=== PATIENT | female | born 1990 | race Two or more races ===

== ENCOUNTER 2019-07-09 12:07 | Emergency (ER) | payer OTHER ==
--- NOTE | 2019-07-09 13:29 | ER Document Report ---
ED Medical Screen (RME) - General Chief Complaint: Abdominal Pain Stated Complaint: ABDOMINAL PAIN/CRAMPING, CHILLS Notes: Patient is a 29-year-old female with no significant past medical history presents to the emergency department the chief complaint of abdominal pain that began yesterday. She states is primarily in the right upper quadrant and epigastric regions. She states is associated with some diarrhea but no vomiting. Denies any known fevers. Took some Tylenol at home without any significant improvement. States she was concerned when she woke up this morning and was still having some discomfort so she decided to come for evaluation. I have treated and performed a rapid initial assessment of this patient. A comprehensive ED assessment and evaluation of the patient, analysis of test results and completion of medical decision making process will be conducted by additional ED providers. PHYSICAL EXAMINATION: GENERAL: Well-appearing, well-nourished and in no acute distress. A&Ox4. Answers questions appropriately. Abdomen: Normal active bowel sounds in all quadrants. Tenderness palpation all 4 quadrants.
[2019-07-09 14:29] LABS: ABSOLUTE EOSINOPHILS # (AUTO) 0.3 10^3/uL (0.0-0.6); ABSOLUTE LYMPHOCYTES (AUTO) 2.1 10^3/uL (0.5-4.7); ABSOLUTE MONOCYTES (AUTO) 0.4 10^3/uL (0.1-1.4); ABSOLUTE NEUT (AUTO) 3.6 10^3/uL (1.7-8.2); BASOPHILS % (AUTO) 0.7 % (0-2); EOSINOPHILS % (AUTO) 4.8 % (0-6); HEMATOCRIT 39.9 % (36.0-47.0); HEMOGLOBIN 14.4 g/dL (12.0-15.5); LYMPHOCYTES % (AUTO) 32.4 % (13-45); MEAN CORPUSCULAR HEMOGLOBIN 33.1 pg (27.0-33.4); MEAN CORPUSCULAR VOLUME 92 fl (80-97); MONOCYTES % (AUTO) 6.7 % (3-13); PLATELET COUNT 321 10^3/uL (150-450); RED BLOOD COUNT 4.33 10^6/uL (3.72-5.28); RED CELL DISTRIBUTION WIDTH 13.1 % (11.5-14.0); SEGMENTED NEUTROPHILS % (AUTO) 55.4 % (42-78); TOTAL CELLS COUNTED % (AUTO) 100 %; WHITE BLOOD COUNT 6.6 10^3/uL (4.0-10.5)
[2019-07-09 14:46] LABS: AMORPHOUS SEDIMENT,URINE 1+ /HPF; APPEARANCE,URINE CLOUDY; BILIRUBIN,URINE NEGATIVE (NEGATIVE); COLOR,URINE YELLOW; GLUCOSE, URINE NEGATIVE (NEGATIVE); KETONES,URINE NEGATIVE (NEGATIVE); PROTEIN,URINE NEGATIVE (NEGATIVE); URINE SPECIFIC GRAVITY 1.018; UROBILINOGEN,URINE NEGATIVE mg/dL (<2.0)
[2019-07-09 14:48] LABS: ALKALINE PHOSPHATASE 76 U/L (38-126); ANION GAP 10 (5-19); ASPARTATE AMINO TRANSFERASE 25 U/L (14-36); BILIRUBIN,DIRECT 0.1 mg/dL (0.0-0.4); BILIRUBIN,TOTAL 0.5 mg/dL (0.2-1.3); BLOOD UREA NITROGEN 13 mg/dL (7-20); C-REACTIVE PROTEIN 5.5 mg/L (<10.0); CALCIUM 9.9 mg/dL (8.4-10.2); CARBON DIOXIDE 27 mmol/L (22-30); CHLORIDE 102 mmol/L (98-107); GLUCOSE 93 mg/dL (75-110); POTASSIUM 4.5 mmol/L (3.6-5.0); TOTAL PROTEIN 8.5 g/dL (6.3-8.2)
--- NOTE | 2019-07-09 14:55 | ER Document Report ---
ED GI/ - General Chief Complaint: Abdominal Pain Stated Complaint: ABDOMINAL PAIN/CRAMPING, CHILLS Time Seen by Provider: 07/09/19 14:10 Notes: HPI: 29-year-old female presents today with what she states is the onset around 4 days ago of some right upper quadrant intermittent abdominal "cramping". Not related to food. Some radiation to the midepigastrium. She has had no vomiting but has had multiple bouts of nonbloody diarrhea. No recent antibiotics trips or travel. No runny nose, congestion, cough, chest pain, or fevers. No short ness of breath. No calf pain or leg swelling. ROS: See HPI All other review of systems reviewed and otherwise negative Reviewed vital signs and nursing note as charted by RN. PHYSICAL EXAM: CONSTITUTIONAL: Alert and oriented and responds appropriately to questions. Well-appearing; well-nourished HEAD: Normocephalic; atraumatic EYES: Sclerae non-icteric ENT: Normal nose; no rhinorrhea; moist mucous membranes; pharynx without lesions noted NECK: Supple without meningismus; non-tender; no cervical lymphadenopathy, no masses CARD: Regular rate and rhythm; no murmurs; symmetric distal pulses RESP: Normal chest excursion without splinting or tachypnea; breath sounds clear and equal bilaterally; no wheezes, no rhonchi, no rales ABD/GI: Normal bowel sounds; non-distended; soft, mildly tender to the right upper quadrant and epigastric region. No rebound or guarding. Negative Lopez sign. No tenderness to the lower abdomen BACK: The back appears normal and is non-tender to palpation EXT: Normal ROM in all joints; non-tender to palpation; no edema SKIN: No acute lesions noted NEURO: CN 2-12 intact; 5/5 bilateral upper and lower extremity strength with sensation intact to light touch PSYCH: The patient's mood and manner are appropriate. Grooming and personal hygiene are appropriate. TRAVEL OUTSIDE OF THE [place] IN LAST 30 DAYS: No - Related Data Allergies/Adverse Reactions: ibuprofen Allergy (Verified 07/09/19 13:29) Past Medical History - Social History Smoking Status: Never Smoker Chew tobacco use (# tins/day): No Frequency of alcohol use: None Drug Abuse: None Family History: Reviewed & Not Pertinent Patient has suicidal ideation: No Patient has homicidal ideation: No Physical Exam - Vital signs Vitals: Temp Pulse Resp BP Pulse Ox 98.7 F 75 20 119/83 99 07/09/19 13:26 07/09/19 13:26 07/09/19 13:07/09/19 13:07/09/19 13:26 Course - Re-evaluation Re-evalutation: Given the above history and physical we will obtain basic labs, liver panel and lipase, right upper quadrant ultrasound, and reassess. Patient has no lower abdominal tenderness. Patient has had multiple bouts of diarrhea with no recent antibiotics or travel. 07/09/19 14:55 Labs and imaging as recorded. No change in the location of the patient's pain. No lower abdominal tenderness on repeat exam. I will start the patient on a dose of a GI cocktail as well as Protonix/Prilosec as an outpatient with strict return precautions and follow-up with a front desk officer. - Vital Signs Vital signs: Temp Pulse Resp BP Pulse Ox 98.7 F 75 20 119/83 99 07/09/19 13:26 07/09/19 13:26 07/09/19 13:26 07/09/19 13:26 07/09/19 13:26 - Laboratory Result Diagrams: 07/09/19 14:05 07/09/19 14:05 Laboratory results interpreted by me: 07/09/19 14:05 Total Protein 8.5 H Discharge - Discharge Clinical Impression: Upper abdominal pain, Diarrhea Condition: Good Disposition: HOME, SELF-CARE Additional Instructions: Come back immediately with any increased pain, change in location or quality of pain, fevers or vomiting, or any other acute problems. Please follow-up with your primary care physician as well as the front desk officer that I have refer red you to. Please start taking Prilosec [id number] once daily until reassessed.
--- NOTE | 2019-07-09 15:20 | RADIOLOGY REPORT (SQ) ---
EXAM DESCRIPTION: U/S ABDOMEN LIMITED W/O DOP COMPLETED DATE/TIME: 07/09/2019 3:07 pm REASON FOR STUDY: 43; RUQ pain COMPARISON: None. TECHNIQUE: Dynamic and static grayscale images acquired of the abdomen and recorded on PACS. Additio nal selected color Doppler and spectral images recorded. LIMITATIONS: None. FINDINGS: PANCREAS: No masses. Visualized pancreatic duct normal caliber. LIVER: No masses. Echotexture normal. LIVER VASCULATURE: Normal directional flow of the main portal vein and hepatic veins. GALLBLADDER: No stones. Normal wall thickness. No pericholecystic fluid. ULTRASOUND-DETECTED NEVAREZ'S SIGN: Negative. INTRAHEPATIC DUCTS AND COMMON DUCT: CBD and intrahepatic ducts normal caliber. No filling defects. AORTA: No aneurysm. RIGHT KIDNEY: Normal size. Normal echogenicity. No solid or suspicious masses. No hydronephrosis. No calcifications. PERITONEAL AND RIGHT PLEURAL SPACE: No ascites or effusions. OTHER: No other significant findings. IMPRESSION: NORMAL RIGHT UPPER QUADRANT ULTRASOUND. TECHNICAL DOCUMENTATION: JOB ID: [id number] 2010 [employer]- All Rights Reserved Reading location - IP/workstation name: [email or web address]
[2019-07-09] MEDS ORDERED: LIDOCAINE 2% VISCOUS SOLN 15 ML UDCUP PO ONE (15:56)
[2019-07-09] MEDS ORDERED: METOCLOPRAMIDE HCL ORAL SOLN 10 MG/10 ML UDCUP PO ONE (15:56)
[2019-07-09] MEDS ORDERED: MAG HYDROX/AL HYDROX/SIMETH SUSP 30 ML UDCUP PO ONE (15:56)
[2019-07-09 16:26] VITALS: BP 112/82
== END 2019-07-09 16:27 | disposition home or self-care (01) ==
LOC: ER 12:07
DX: R10.10 Upper abdominal pain, unspecified (principal); R19.7 Diarrhea, unspecified; R10.9 Unspecified abdominal pain; R10.11 Right upper quadrant pain
CPT/HCPCS: 99284; 36415; 83690; 85025; 81025; 86140; 80053; 81001; 76705; J3490

== ENCOUNTER 2019-11-13 20:42 | Emergency (ER) | payer OTHER ==
[2019-11-13] MEDS ORDERED: ACETAMINOPHEN 325 MG TABLET PO ONE (20:59)
[2019-11-13] MEDS ORDERED: NORMAL SALINE 1000 ML 1,000 ML IV ONE (20:59)
--- NOTE | 2019-11-13 21:00 | ER Document Report ---
ED Medical Screen (RME) - General Chief Complaint: Back Pain Stated Complaint: BACK PAIN,UNUSUAL VAGINAL BLEEDING Time Seen by Provider: 11/13/19 20:53 Mode of Arrival: Ambulatory Information source: Patient Notes: Patient presents complaining of irregular vaginal bleeding over the past month. Patient states that she stopped her oral contraceptive pills in August and had a menstrual cycle on October 17. Patient states that she started bleeding again on October 30 and then started bleeding again tonight. Patient does report urinary frequency. Patient complains of dizziness. Patient does report nausea. No fever. Patient is not on any control at this time. I have greeted and performed a rapid initial assessment of this patient. A comprehensive ED assessment and evaluation of the patient, analysis of test results and completion of the medical decision making process will be conducted by additional ED providers. TRAVEL OUTSIDE OF THE [place] IN LAST 30 DAYS: No - Related Data Allergies/Adverse Reactions: ibuprofen Allergy (Verified 07/09/19 13:29) Past Medical History - Social History Frequency of alcohol use: None Drug Abuse: None Physical Exam - Vital signs Vitals: Temp Pulse Resp BP Pulse Ox 97.9 F 63 18 118/79 100 11/13/19 20:50 11/13/19 20:50 11/13/19 20:50 11/13/19 20:50 11/13/19 20:50 - Back Back: Vertebra tenderness - Lower lumbar. No: CVA tenderness Course - Vital Signs Vital signs: Temp Pulse Resp BP Pulse Ox 97.9 F 63 18 118/79 100 11/13/19 20:50 11/13/19 20:50 11/13/19 20:50 11/13/19 20:50 11/13/19 20:50
[2019-11-13 22:34] LABS: ABSOLUTE BASOPHILS # (AUTO) 0.1 10^3/uL (0.0-0.2); ABSOLUTE EOSINOPHILS # (AUTO) 0.3 10^3/uL (0.0-0.6); ABSOLUTE LYMPHOCYTES (AUTO) 3.2 10^3/uL (0.5-4.7); ABSOLUTE MONOCYTES (AUTO) 0.5 10^3/uL (0.1-1.4); ABSOLUTE NEUT (AUTO) 3.2 10^3/uL (1.7-8.2); BASOPHILS % (AUTO) 0.7 % (0-2); HEMATOCRIT 39.2 % (36.0-47.0); HEMOGLOBIN 13.6 g/dL (12.0-15.5); LYMPHOCYTES % (AUTO) 44.4 % (13-45); MEAN CORPUSCULAR HGB CONC 34.6 g/dL (32.0-36.0); MEAN CORPUSCULAR VOLUME 93 fl (80-97); MONOCYTES % (AUTO) 7.2 % (3-13); PLATELET COUNT 333 10^3/uL (150-450); RED BLOOD COUNT 4.24 10^6/uL (3.72-5.28); RED CELL DISTRIBUTION WIDTH 13.3 % (11.5-14.0); SEGMENTED NEUTROPHILS % (AUTO) 43.7 % (42-78); TOTAL CELLS COUNTED % (AUTO) 100 %; WHITE BLOOD COUNT 7.2 10^3/uL (4.0-10.5)
[2019-11-13 22:52] LABS: ALBUMIN 4.5 g/dL (3.5-5.0); ALKALINE PHOSPHATASE 64 U/L (38-126); ANION GAP 8 (5-19); ASPARTATE AMINO TRANSFERASE 25 U/L (14-36); BILIRUBIN,TOTAL 0.4 mg/dL (0.2-1.3); BLOOD UREA NITROGEN 13 mg/dL (7-20); CALCIUM 9.4 mg/dL (8.4-10.2); CARBON DIOXIDE 29 mmol/L (22-30); CHLORIDE 100 mmol/L (98-107); GLUCOSE 94 mg/dL (75-110); POTASSIUM 3.6 mmol/L (3.6-5.0); TOTAL PROTEIN 7.5 g/dL (6.3-8.2)
[2019-11-13 23:42] LABS: APPEARANCE,URINE CLEAR; BILIRUBIN,URINE NEGATIVE (NEGATIVE); COLOR,URINE STRAW; GLUCOSE, URINE NEGATIVE (NEGATIVE); KETONES,URINE NEGATIVE (NEGATIVE); LEUKOCYTE ESTERASE,URINE NEGATIVE (NEGATIVE); NITRITE,URINE NEGATIVE (NEGATIVE); PROTEIN,URINE NEGATIVE (NEGATIVE); URINE SPECIFIC GRAVITY 1.006; UROBILINOGEN,URINE NEGATIVE mg/dL (<2.0)
--- NOTE | 2019-11-14 00:10 | ER Document Report ---
Entered by MODESTA LAU SCRIBE 11/13/19 [id number] Acting as scribe for:JEANETH REA DO ED General - General Chief Complaint: Back Pain Stated Complaint: BACK PAIN,UNUSUAL VAGINAL BLEEDING Time Seen by Provider: 11/13/19 20:53 Primary Care Provider: VAUGHN LAMBERT [Primary Care Provider] - Follow up as needed AMELIA JACK MD [ACTIVE PROVISIONAL STAFF] - Follow up as needed Mode of Arrival: Ambulatory Information source: Patient Notes: This 29 year old female patient presents to the ED today with complaints of mild lower back pain and irregular vaginal bleeding. Patient states that the back pain started x3 days ago and feels similar to when she is about to start her cycle. Pain is exacerbated by certain movements. No recent fall or injury. She reports that she stopped taking her control in August due to side effects and had a normal menstrual cycle on October 17. She states that she had another menstrual cycle that ended on November 03 and then started bleeding again tonight, which is abnormal for her. She does admit to some white/brown vaginal discharge prior to her menstrual cycles. Denies prior pregnancies or vaginal odor. TRAVEL OUTSIDE OF THE [place] IN LAST 30 DAYS: No - Related Data Allergies/Adverse Reactions: ibuprofen Allergy (Verified 07/09/19 13:29) Past Medical History - General Information source: Patient - Social History Smoking Status: Never Smoker Cigarette use (# per day): No Chew tobacco use (# tins/day): No Smoking Education Provided: No Frequency of alcohol use: None Drug Abuse: None Family History: Reviewed & Not Pertinent Patient has suicidal ideation: No Patient has homicidal ideation: No Review of Systems - Review of Systems Constitutional: No symptoms reported EENT: No symptoms reported Cardiovascular: No symptoms reported Respiratory: No symptoms reported Gastrointestinal: See HPI. denies: Abdominal pain Genitourinary: No symptoms reported Female Genitourinary: See HPI, Last menstrual period - 11/04/2019, Vaginal discharge, Vaginal bleeding. denies: Vaginal odor Musculoskeletal: See HPI, Back pain Skin: No symptoms reported Hematologic/Lymphatic: No symptoms reported Neurological/Psychological: No symptoms reported -: Yes All other systems reviewed and negative Physical Exam - Vital signs Vitals: Temp Pulse Resp BP Pulse Ox 97.9 F 63 18 118/79 100 11/13/19 20:50 11/13/19 20:50 11/13/19 20:50 11/13/19 20:50 11/13/19 20:50 Interpretation: Normal - General General appearance: Appears well, Alert In distress: None - HEENT Head: Normocephalic, Atraumatic Eyes: Normal Pupils: PERRL - Respiratory Respiratory status: No respiratory distress Chest status: Nontender Breath sounds: Normal Chest palpation: Normal - Cardiovascular Rhythm: Regular Heart sounds: Normal auscultation Murmur: No Friction rub: No Gallop: None auscultated - Abdominal Inspection: Normal Distension: No distension Bowel sounds: Normal Tenderness: Nontender - Abdomen soft Organomegaly: No organomegaly - Back Back: Tender - Left sided sacral-iliac pain, paraspinal pain on the right - Extremities General upper extremity: Normal inspection General lower extremity: Normal inspection. No: Edema - Neurological Neuro grossly intact: Yes Orientation: AAOx4 Robert Coma Scale Eye Opening: Spontaneous [place] Coma Scale Verbal: Oriented [place] Coma Scale Motor: Obeys Commands Robert Coma Scale Total: 15 - Psychological Associated symptoms: Normal affect, Normal mood - Skin Skin Temperature: Warm Skin Moisture: Dry Skin Color: Normal Course - Re-evaluation Re-evalutation: 11/14/19 00:50 MDM 29 year old female with irregular vaginal bleeding. Stopped OCPs a few weeks back due to side effects - acne and headaches. Now bleeding irregularly and back pain. Here evaluation is reassuring. She will be given OB/ SCHEDULE SUPERVISOR follow up instructions. - Vital Signs Vital signs: Temp Pulse Resp BP Pulse Ox 97.6 F 57 L 18 93/63 L 95 11/14/19 01:00 11/14/19 01:00 11/14/19 01:00 11/14/19 01:00 11/14/19 01:00 - Laboratory Result Diagrams: 11/13/19 22:20 11/13/19 22:20 Laboratory results interpreted by me: 11/13/19 11/13/19 22:20 23:25 Sodium 136.5 L Urine Blood MODERATE H - Diagnostic Test Radiology reviewed: Reports reviewed Discharge - Discharge Clinical Impression: Vaginal bleeding Back pain Qualifiers: Back pain location: low back pain Chronicity: acute Back pain laterality: bilateral Sciatica presence: without sciatica Qualified Code(s): M54.5 - Low back pain Condition: Stable Disposition: HOME, SELF-CARE Instructions: Ice Packs ([facility]), Low Back Pain ([facility]), Muscle Strain ([facility]), Vaginal Bleeding ([facility]) Additional Instructions: Rest, ice and alternate ice and heat to back. See your primary doctor in follow up. Please return here for fever, increasing pain or other problems or concerns. Prescriptions: Cyclobenzaprine HCl [Flexeril 10 mg Tablet] 5 mg PO TID #10 tablet Referrals: VAUGHN LAMBERT [Primary Care Provider] - Follow up as needed AMELIA JACK MD [ACTIVE PROVISIONAL STAFF] - Follow up as needed I personally performed the services described in the documentation, reviewed and edited the documentation which was dictated to the scribe in my presence, and it accurately records my words and actions.
--- NOTE | 2019-11-14 00:44 | RADIOLOGY REPORT (SQ) ---
US PELVIS TRANSVAGINAL HISTORY: 29 years Female pain and bleeding. COMPARISON: No relevant studies are available for comparison. Technique: Endovaginal Imaging of the pelvis was performed. Color and spectral imaging was performed. Uterus: The uterus measures 8.6 x 4.5 x 3.4 cm and is morphologically normal. Endometrium is normal and measures 7 mm. The cervix measures 2.7 cm. Right Ovary: The ovary measures 2.8 x 1.4 x 1.7 cm and is morphologically normal. Normal color and spectral doppler waveforms Left Ovary: The ovary measures 3.4 x 2.2 x 1.9 cm and is morphologically normal. Normal color and spectral doppler waveforms Other: No adnexal mass. No free fluid. IMPRESSION: Unremarkable pelvic ultrasound.
[2019-11-14 01:03] VITALS: BP 93/63
[2019-11-14 01:09] LABS: CHLAM PCR NOT DETECTED (NOT DETECT)
== END 2019-11-14 01:05 | disposition home or self-care (01) ==
LOC: ER 20:42
DX: N93.8 Other specified abnormal uterine and vaginal bleeding (principal); M54.5 Low back pain
CPT/HCPCS: 99284; 96360; 36415; 84703; 85025; 80053; 81001; 87491; 87591; 76830; 93976; J7030